=== PATIENT | female | born 1960 | race Caucasian/White ===

== ENCOUNTER 2023-08-24 08:17 | Day surgery (SDC) | payer BC, MEDICAID ==
[2023-08-24] MEDS ORDERED: Midazolam 1 MG/ML 2 ML SDV ONE (08:43)
[2023-08-24] MEDS ORDERED: fentaNYL 50 MCG/ML SDV ONE (08:43)
[2023-08-24] MEDS ORDERED: Propofol 200 MG/20 ML SDV ONE (08:43)
[2023-08-24] MEDS: Lactated Ringers 1,000 ML IV SCH (08:55)
== END 2023-08-24 11:23 | disposition home or self-care (01) ==
LOC: JP.SDS 08:17
PROVIDERS: ATTEND Family Medicine
DX: Z12.11 Encounter for screening for malignant neoplasm of colon (principal); Z88.0 Allergy status to penicillin
CPT/HCPCS: 45378; J2250; J2704; J3010; J7120